=== PATIENT | female | born 1950 | race Caucasian/White ===

== ENCOUNTER 2016-04-21 08:00 | Outpatient (CLI) | payer BC | END 2016-04-21 23:59 | disposition home or self-care (01) | DX: J45.41 Moderate persistent asthma with (acute) exacerbation (principal); J45.40 Moderate persistent asthma, uncomplicated ==

== ENCOUNTER 2017-11-28 13:59 | Outpatient (CLI) | payer BC ==
--- NOTE | 2017-11-29 15:11 | DEXA Report ---
Reason: POST MENOPAUSAL Procedure Date: 11/28/2017 Accession Number: [id number] / [id number] Procedure: DEX - Dexa Spine and/or Hip CPT Code: FULL RESULT: EXAM: Dexa Spine and/or Hip DATE: 11/28/2017 2:40 PM CLINICAL HISTORY: POST MENOPAUSAL TECHNIQUE: Dual energy x-ray absorptiometry (DXA) was performed on a [employer] System. Regions measured are the AP Spine, femoral neck, and if needed forearm. COMPARISON: None. In accordance with the International Society for Clinical Densitometry (ISCD) guidelines, data from previous exams may be reanalyzed using current recommendations and techniques. This is done to allow a more accurate basis for comparison with the current study. FINDINGS: The data for the lumbar spine is as follows: BMD (g/cm/cm) T-SCORE Z-SCORE REGION L1 1.573 3.7 4.2 L2 1.746 4.6 5.0 L3 1.902 5.9 6.3 L4 2.038 7.0 7.4 TOTAL 1.822 5.4 5.8 NOTE: All evaluable vertebrae are used for classification The data for the hip is as follows: BMD (g/cm/cm) T-SCORE Z-SCORE REGION Neck 0.972 -0.5 0.3 TOTAL 1.195 1.5 2.0 NOTE: The femoral neck or total proximal femur, whichever is lowest, is used for classification. IMPRESSION: THE WHO CLASSIFICATION BASED ON THE INTERNATIONAL REFERENCE STANDARD IS NORMAL. THE FRACTURE RISK IS NOT INCREASED. RECOMMENDATION: Patients with diagnosis of osteoporosis or osteopenia should have regular bone mineral density assessment. For those eligible for Medicare, routine testing is allowed once every 2 years. Testing frequency can be increased for patients who have rapidly progressing disease or for those who are receiving medical therapy to restore bone mass. COMMENT: World Health Organization (WHO) definitions for osteoporosis and osteopenia: NORMAL BMD: T-score at -1.0 or higher, fracture risk is low OSTEOPENIA BMD: T-score between -1.0 and -2.5, fracture risk is increased. OSTEOPOROSIS BMD: T-score at -2.5 or lower, fracture risk is high. National Osteoporosis Foundation recommends: 1. Obtain adequate dietary calcium (at least 1200 mg per day) and vitamin D (400-800 international units per day). 2. Participate, as appropriate, in regular weightbearing and muscle-strengthening exercise. 3. Avoid tobacco use and reduce alcohol and caffeine intake. 4. For more detailed information see the website at www.NOF.org.
== END 2017-11-28 14:00 | disposition home or self-care (01) ==
LOC: DI 13:59
PROVIDERS: ATTEND Family Medicine
DX: Z13.820 Encounter for screening for osteoporosis (principal); N95.8 Other specified menopausal and perimenopausal disorders
CPT/HCPCS: 77080

== ENCOUNTER 2017-11-28 14:03 | Outpatient (CLI) | payer BC ==
--- NOTE | 2017-12-06 14:03 | Mammography Report ---
Reason: SCREENING MAMMO Procedure Date: 11/28/2017 Accession Number: [id number] / [id number] Procedure: KAYLEEN - Screening Mammo Dig Bilat CPT Code: FULL RESULT: EXAM: Screening Mammo Dig Bilat DATE: 11/28/2017 3:55 PM CLINICAL HISTORY: 67-year-old female presents for screening mammogram. TECHNIQUE: Bilateral CC and MLO views were obtained. COMPARISON: 07/23/2011, 04/02/2010, 11/20/2008. FINDINGS: The breasts demonstrate diffuse fatty replacement bilaterally. No suspicious masses, clustered microcalcifications, or regions of architectural distortion are identified. IMPRESSION: Negative examination RECOMMENDATION: Routine annual screening unless otherwise clinically indicated. BIRADS CATEGORY 1: Negative STANDARD QUALIFYING STATEMENTS: 1. This examination was not reviewed with the aid of Computer-Aided Detection (CAD). 2. A negative or benign imaging report should not delay biopsy if clinically suspicious findings are present. Consider surgical consultation if warrented. More than 5% of cancers are not identified by imaging. 3. Dense breasts may obscure an underlying neoplasm. 4. This examination was reviewed without the aid of 3D breast imaging (tomosynthesis).
== END 2017-11-28 14:04 | disposition home or self-care (01) ==
LOC: DI 14:03
PROVIDERS: ATTEND Family Medicine
DX: Z12.31 Encounter for screening mammogram for malignant neoplasm of breast (principal)
CPT/HCPCS: 77067

== ENCOUNTER 2017-12-26 14:37 | Outpatient (CLI) | payer BC | END 2017-12-26 14:38 | disposition home or self-care (01) | LOC: SC 14:37 | PROVIDERS: ATTEND Internal Medicine Pulmonary Disease | DX: G47.33 Obstructive sleep apnea (adult) (pediatric) (principal) | CPT/HCPCS: 99203; 99212 ==

== ENCOUNTER 2018-07-12 15:17 | Outpatient (CLI) | payer BC | END 2018-07-12 15:18 | disposition home or self-care (01) | LOC: SC 15:17 | PROVIDERS: ATTEND Nurse Practitioner Family | DX: G47.33 Obstructive sleep apnea (adult) (pediatric) (principal); G47.00 Insomnia, unspecified | CPT/HCPCS: 99212; 99214 ==

== ENCOUNTER 2018-09-27 16:06 | Outpatient (CLI) | payer BC | END 2018-09-27 16:07 | disposition home or self-care (01) | LOC: SC 16:06 | PROVIDERS: ATTEND Nurse Practitioner Family | DX: G47.33 Obstructive sleep apnea (adult) (pediatric) (principal); G47.00 Insomnia, unspecified | CPT/HCPCS: 99212; 99214 ==

== ENCOUNTER 2018-10-07 01:26 | Emergency (ER) | payer BC ==
[2018-10-07 02:17] LABS: BASOPHILS # (AUTO) 0.1 10^3/uL (0.0-0.1); BASOPHILS % (AUTO) 0.4 %; EOSINOPHILS # (AUTO) 0.1 10^3/uL (0.0-0.7); EOSINOPHILS % (AUTO) 0.5 %; HGB - HEMOGLOBIN 12.9 g/dL (12.0-16.0); LYMPHOCYTES # (AUTO) 0.9 10^3/uL (1.5-3.5); LYMPHOCYTES % (AUTO) 5.3 %; MEAN CORPUSCULAR HEMOGLOBIN 29.5 pg (27.0-31.0); MEAN CORPUSCULAR HGB CONC 32.8 g/dL (32.0-36.0); MEAN CORPUSCULAR VOLUME 89.7 fL (81.0-99.0); MEAN PLATELET VOLUME 9.4 fL (7.9-10.8); MONOCYTES # (AUTO) 0.5 10^3/uL (0.0-1.0); MONOCYTES % (AUTO) 3.3 %; NEUTROPHILS # (AUTO) 14.8 10^3/uL (1.5-6.6); NEUTROPHILS % (AUTO) 89.9 %; PLT - PLATELET COUNT 321 10^3/uL (130-450); RED BLOOD COUNT 4.38 10^6/uL (4.20-5.40); RED CELL DISTRIBUTION WIDTH 12.8 % (12.0-15.0); WHITE BLOOD COUNT 16.5 x10^3/uL (4.8-10.8)
[2018-10-07] MEDS ORDERED: SODIUM CHLORIDE 0.9% 1,000 ML IV ONE (02:17)
[2018-10-07 02:31] LABS: BILIRUBIN,TOTAL 0.6 mg/dL (0.2-1.0); CALCIUM 9.8 mg/dL (8.5-10.3); CREATININE 0.8 mg/dL (0.4-1.0); TOTAL PROTEIN 8.2 g/dL (6.7-8.2)
[2018-10-07 02:40] LABS: GLUCOSE, URINE (UA) NEGATIVE (NEGATIVE); KETONES,URINE (UA) NEGATIVE (NEGATIVE); LEUKOCYTE ESTERASE, URINE NEGATIVE (NEGATIVE); NITRITE,URINE NEGATIVE (NEGATIVE); OCCULT BLOOD,URINE TRACE-INTA (NEGATIVE); PROTEIN,URINE NEGATIVE (NEGATIVE); UROBILINOGEN,URINE 0.2 (NORMAL) E.U./dL (NORMAL)
[2018-10-07 02:41] LABS: CLARITY,URINE CLEAR (CLEAR)
[2018-10-07 02:46] LABS: BILIRUBIN,URINE NEGATIVE (NEGATIVE); ICTOTEST,URINE NEGATIVE
--- NOTE | 2018-10-07 02:54 | ED Physician Documentation ---
PD HPI ABD PAIN - Stated complaint Stated Complaint: ABD PX/VOMITING - Chief complaint Chief Complaint: Abd Pain - History obtained from History obtained from: Patient - History of Present Illness Timing - onset: Enter time (16:00), Today Timing - duration: Hours Timing - details: Abrupt onset, Still present, Waxing and waning Pain level now: 8 Quality: Pain Location: LUQ Radiation: Left flank Improved by: Other (nothing) Worsened by: Other (no exacerbating factors) Associated symptoms: Nausea, Vomiting. No: Dysuria Similar symptoms before: Has not had sx before Recently seen: Not recently seen - Additional information Additional information: left abdominal and flank pain since 4 pm, becoming more severe and associated with nausea and vomiting since 9:30 pm Review of Systems Constitutional: reports: Reviewed and negative Cardiac: reports: Reviewed and negative Respiratory: reports: Reviewed and negative GI: reports: Abdominal Pain, Nausea, Vomiting. denies: Constipation, Diarrhea : denies: Dysuria, Frequency PD PAST MEDICAL HISTORY - Past Medical History Past Medical History: Yes Cardiovascular: Hypertension, High cholesterol Respiratory: Asthma Endocrine/Autoimmune: HyPOthyroidism GI: GERD : Other Psych: Depression Other Past Medical History: Kidney Infection - Past Surgical History Past Surgical History: Yes Ortho: Knee replacement - Present Medications Home Medications: Ambulatory Orders Medication Instructions Recorded Confirmed Albuterol Sulf [Ventolin Hfa 1 - 2 puffs INH PRN PRN 10/07/18 10/07/18 Inhaler] Citalopram [CeleXA] 20 mg PO DAILY 10/07/18 10/07/18 Etodolac [Lodine] 400 mg PO BID 10/07/18 10/07/18 Fluticasone [Flonase] 10/07/18 Fluticasone/Salmeterol [Advair 1 cap INH DAILY 10/07/18 10/07/18 500-50 Diskus] Lansoprazole 30 mg PO DAILY 10/07/18 10/07/18 Levothyroxine Sodium [Synthroid] 1 tab PO DAILY 10/07/18 10/07/18 Lisinopril/Hydrochlorothiazide 1 tab PO DAILY 10/07/18 10/07/18 [Lisinopril-Hctz 20-12.5 mg Tab] Ondansetron Odt [Zofran] 4 mg TL Q6H PRN #10 tablet 10/07/18 Oxycodone HCl/Acetaminophen 1 - 2 each PO Q6H PRN #14 tablet 10/07/18 [Percocet 5-325 mg Tablet] Pravastatin [Pravachol] 1 tab PO DAILY 10/07/18 10/07/18 Tamsulosin [Flomax] 0.4 mg PO DAILY #10 capsule 10/07/18 - Allergies Allergies/Adverse Reactions: Allergies Allergy/AdvReac Type Severity Reaction Status Date / Time NSAIDS (Non-Steroidal Allergy Hives Verified 10/07/18 01:35 Anti-Inflamma Sulfa (Sulfonamide Allergy Anaphylaxis Verified 10/07/18 01:35 Antibiotics) - Social History Does the pt smoke?: No Smoking Status: Never smoker Does the pt drink ETOH?: Yes Does the pt have substance abuse?: No - Immunizations Immunizations are current?: Yes - POLST Patient has POLST: No PD ED PE NORMAL - Vitals Vital signs reviewed: Yes - General General: Alert and oriented X 3, Well developed/nourished, Other (appears to be in painful distress) - Cardiac Cardiac: RRR, No murmur - Respiratory Respiratory: No respiratory distress, Clear bilaterally - Abdomen Abdomen: Soft, Non tender - Back Back: No CVA TTP - Derm Derm: Normal color, Warm and dry, No rash - Extremities Extremities: No edema Results - Vitals Vitals: Oxygen O2 Source Room air - Labs Labs: Laboratory Tests 10/07/18 10/07/18 10/07/18 02:10 02:10 02:10 WBC 16.5 H RBC 4.38 Hgb 12.9 Hct 39.3 MCV 89.7 MCH 29.5 MCHC 32.8 RDW 12.8 Plt Count 321 MPV 9.4 Neut # (Auto) 14.8 H Lymph # (Auto) 0.9 L Irion # (Auto) 0.5 Eos # (Auto) 0.1 Baso # (Auto) 0.1 Absolute Nucleated RBC 0.00 Nucleated RBC % 0.0 Sodium 138 Potassium 4.1 Chloride 102 Carbon Dioxide 24 Anion Gap 12.0 BUN 29 H Creatinine 0.8 Estimated GFR (MDRD) 71 L Glucose 153 H Calcium 9.8 Total Bilirubin 0.6 AST 25 ALT 17 Alkaline Phosphatase 85 Total Protein 8.2 Albumin 4.0 Globulin 4.2 Albumin/Globulin Ratio 1.0 Lipase 36 Urine Color YELLOW Urine Clarity CLEAR Urine pH 6.0 Ur Specific Dyer 1.025 Urine Protein NEGATIVE Urine Glucose (UA) NEGATIVE Urine Ketones NEGATIVE Urine Occult Blood TRACE-INTA Urine Nitrite NEGATIVE Urine Bilirubin NEGATIVE Urine Urobilinogen 0.2 (NORMAL) Ur Leukocyte Esterase NEGATIVE Ur Microscopic Review NOT INDICATED Urine Culture Comments NOT INDICATED - Rads (name of study) CT A/P Radiology: Prelim report reviewed, See rad report PD MEDICAL DECISION MAKING - ED course Complexity details: reviewed results, re-evaluated patient, considered differential, d/w patient Departure - Departure Disposition: 01 Home, Self Care Clinical Impression: Renal colic Condition: Good Instructions: ED Stone Renal W Colic Prescriptions: Ondansetron Odt [Zofran] 4 mg TL Q6H PRN #10 tablet PRN Reason: Nausea / Vomiting Oxycodone HCl/Acetaminophen [Percocet 5-325 mg Tablet] 1 - 2 each PO Q6H PRN #14 tablet PRN Reason: pain Tamsulosin [Flomax] 0.4 mg PO DAILY #10 capsule Discharge Date/Time: 10/07/18 06:35
[2018-10-07] MEDS ORDERED: ONDANSETRON 4 MG/2 ML VIAL IVP STA (03:14)
[2018-10-07] MEDS ORDERED: HYDROmorphone 1 MG/ML CARPUJECT IVP STA (03:14)
--- NOTE | 2018-10-07 04:03 | CT Report ---
Reason: left flank pain Procedure Date: 10/07/2018 Accession Number: [id number] / [id number] Procedure: CT - Abdomen/Pelvis WO CPT Code: FULL RESULT: EXAM: CT ABDOMEN AND PELVIS (CT KUB) EXAM DATE: 10/07/2018 03:43 AM. CLINICAL HISTORY: Left flank pain. COMPARISONS: None. TECHNIQUE: Routine axial helical CT imaging was performed through the abdomen and pelvis without IV contrast. Reconstructions: Coronal and sagittal. In accordance with CT protocol optimization, one or more of the following dose reduction techniques were utilized for this exam: automated exposure control, adjustment of mA and/or KV based on patient size, or use of iterative reconstructive technique. FINDINGS: Lung Bases: Moderate hiatal hernia. Visualized lung bases otherwise unremarkable. Right Kidney/Ureter: No stones, hydronephrosis, or hydroureter. Minimal nonspecific perinephric fat stranding. Left Kidney/Ureter: Mild to moderate left hydronephrosis secondary to left UPJ calculus which is difficult to measure due to irregular/elongated shape although measures approximately 5 x 7 x 20 mm. Multiple additional nonobstructive calculi are present in left upper pole calyces. Left perinephric stranding is present. Other Solid Organs: Noncontrast images of the solid organs are grossly unremarkable. Gallbladder/Bile Ducts: Unremarkable. Peritoneal Cavity: No free fluid, free air or ian adenopathy. Scattered distal colonic diverticula are present without evidence of acute diverticulitis. Bowel is otherwise grossly unremarkable. Pelvic Organs: No bladder stones or wall thickening. Noncontrast images of the visualized pelvic organs are unremarkable. Vasculature: Atherosclerotic vascular disease without abdominal aortic aneurysm. Other: Mild degenerative changes of the spine. No acute fracture. IMPRESSION: 1. Mild to moderate left hydronephrosis secondary to irregular/elongated left UPJ calculus measuring approximately 5 x 7 x 20 mm. Left perinephric stranding is present which may be related to calculus although recommend clinical correlation and correlation with urinalysis to exclude superimposed infection. 2. Additional nonobstructive left upper pole renal calculi. 3. Distal colonic diverticula without evidence of acute diverticulitis. 4. Moderate hiatal hernia. [facility]
[2018-10-07] MEDS ORDERED: oxyCODONE/ACET 5/325 Prepack 4 PO STA (06:13)
[2018-10-07] MEDS ORDERED: TAMSULOSIN 0.4 MG CAPSULE PO STA (06:13)
[2018-10-07 06:29] VITALS: BP 136/64
== END 2018-10-07 06:35 | disposition home or self-care (01) ==
LOC: ED 01:26
DX: N13.2 Hydronephrosis with renal and ureteral calculous obstruction (principal); K44.9 Diaphragmatic hernia without obstruction or gangrene; K21.9 Gastro-esophageal reflux disease without esophagitis; K57.30 Diverticulosis of large intestine without perforation or abscess without bleeding; I10 Essential (primary) hypertension
CPT/HCPCS: 36415; 51701; 74176; 80053; 81003; 83690; 85025; 96361; 96374; 96375; 99284; A9270; J1170; 81001; 87086

== ENCOUNTER 2018-10-20 15:29 | Outpatient (CLI) | payer BC ==
--- NOTE | 2018-10-22 02:01 | XRAY Report ---
Reason: NEPHROLITHIASIS Procedure Date: 10/20/2018 Accession Number: [id number] / [id number] Procedure: XRN - Abdomen 1 View X-Ray CPT Code: 38817 FULL RESULT: EXAM: ABDOMEN RADIOGRAPHY EXAM DATE: 10/20/2018 03:38 PM. CLINICAL HISTORY: NEPHROLITHIASIS. COMPARISON: ABDOMEN/PELVIS W/O 10/07/2018 3:32 AM. TECHNIQUE: 1 view. FINDINGS: Bowel Gas Pattern: Within normal limits. No dilated loops. Other: Group of left upper pole renal calculi, the largest measures 2 x 1.1 cm. Left double-J ureteral stent, new. Focal density seen adjacent to the left proximal ureteral stent measuring 9 mm, could represent the previously seen left proximal ureteral calculus versus artifact. Bilateral calcified phleboliths seen in the pelvis. IMPRESSION: roup of left upper pole renal calculi, the largest measures 2 x 1.1 cm. Left double-J ureteral stent, new. Focal density seen adjacent to the left proximal ureteral stent measuring 9 mm, could represent the previously seen left proximal ureteral calculus versus artifact. RADIA
== END 2018-10-20 15:30 | disposition home or self-care (01) ==
LOC: DI.N 15:29
PROVIDERS: ATTEND Urology
DX: N20.0 Calculus of kidney (principal)
CPT/HCPCS: 74018

== ENCOUNTER 2018-11-13 10:45 | Outpatient (CLI) | payer BC ==
--- NOTE | 2018-11-14 12:49 | XRAY Report ---
Reason: URETERAL CALCULUS, RENAL CALCULUS Procedure Date: 11/13/2018 Accession Number: [id number] / [id number] Procedure: XRN - Abdomen 1 View X-Ray CPT Code: 42855 FULL RESULT: EXAM: ABDOMEN RADIOGRAPHY EXAM DATE: 11/13/2018 11:10 AM. CLINICAL HISTORY: URETERAL CALCULUS, RENAL CALCULUS. COMPARISON: ABDOMEN 1 VIEW 10/20/2018 3:45 PM ABDOMEN/PELVIS W/O 10/07/2018 3:32 AM. TECHNIQUE: 1 view. FINDINGS: Bowel Gas Pattern: Bowel gas pattern is normal. No bowel obstruction. Moderate volume of stool in the colon. Upper abdomen and lateral portions of the abdomen not included. Other: Interval removal of left ureteral stent. Mid upper pole left renal nonobstructing calculi again seen. The left ureteral calculus not clearly seen on the current study. Degenerative changes of the lumbar spine. IMPRESSION: 1. Interval removal of left ureteral stent. 2. Left ureteral calculus previously seen, not definitively seen on the current study. RADIA
== END 2018-11-13 10:46 | disposition home or self-care (01) ==
LOC: DI.N 10:45
PROVIDERS: ATTEND Urology
DX: N20.1 Calculus of ureter (principal); N20.0 Calculus of kidney
CPT/HCPCS: 74018

== ENCOUNTER 2018-12-11 09:12 | Outpatient (CLI) | payer BC ==
--- NOTE | 2018-12-12 09:11 | XRAY Report ---
Reason: RENAL CALCULUS Procedure Date: 12/11/2018 Accession Number: [id number] / [id number] Procedure: XRN - Abdomen 1 View X-Ray CPT Code: 54217 FULL RESULT: EXAM: ABDOMEN RADIOGRAPHY EXAM DATE: 12/11/2018 09:24 AM. CLINICAL HISTORY: RENAL CALCULUS. COMPARISON: ABDOMEN 1 VIEW 11/13/2018 11:10 AM ABDOMEN/PELVIS W/O 10/07/2018 3:32 AM. TECHNIQUE: 1 view. FINDINGS: Bowel Gas Pattern: Within normal limits. No dilated loops. Other: Interval left ureteral stent placement. IMPRESSION: 1. Interval left ureteral stent placement. 2. No renal stones evident by plain film. RADIA
== END 2018-12-11 09:13 | disposition home or self-care (01) ==
LOC: DI.N 09:12
PROVIDERS: ATTEND Urology
DX: N20.0 Calculus of kidney (principal)
CPT/HCPCS: 74018